=== PATIENT | male | born 2005 | race Caucasian/White ===

== ENCOUNTER 2025-04-01 18:33 | Emergency (ER) | payer BC, SELFPAY ==
[2025-04-01 18:38] VITALS: BP 137/73; PULSE 80; TEMP 37.1; O2SAT 98; BMI 22.4
--- NOTE | 2025-04-01 18:47 | XR_ITS ---
The [address] [address] Patient Name: PARVIN REYES MRN: [id number] date: 2005 Sex: M Assigned Patient Location: ED.MAIN Current Patient Location: ED.MAIN Accession/Order Number: [id number] Exam Date: 04/01/2025 19:38 Report Date: 04/01/2025 19:40 At the request of: EVONNE SANZ MD Procedure: XR foot LT min 3V LEFT FOOT - 3 views CLINICAL HISTORY: pain COMPARISON: None FINDINGS: Nondisplaced minimally comminuted fracture involving the first metatarsal. No significant distraction. Mild to moderate overlying soft tissue swelling. XR/XR foot LT min 3V IMPRESSION: Nondisplaced first metatarsal fracture. Impression dictated by: Everton Lang M.D. 04/01/2025 7:40 PM Dictation Location: [place] [address] Electronically authenticated by: [id number] Y Date: 04/01/2025 19:40
--- NOTE | 2025-04-01 18:48 | PC.NURSE ---
left foot swelling, pedal pulse present
--- NOTE | 2025-04-01 18:57 | ED_ITS ---
HPI HPI - General Adult General Chief complaint: Extremity Injury, Lower Stated complaint: LOWER EXTREMITY INJURY 04/01/25 Time Seen by Provider: 04/01/25 18:51 Source: patient Mode of arrival: walk-in History of Present Illness HPI narrative: Patient presents to the emergency department with pain and swelling to the dorsal aspect of the left foot after a floor anuradha dropped onto his foot while unloading it from a truck. Patient does have an overlying abrasion. Patient states the injury happened approximately 2 PM. He denies any other areas of injuries. Patient able to bear weight but painful to do so. He denies any numbness or tingling distal to the injury. Patient unsure when his last tetanus shot was Location: Reports left and lower extremity Radiation: Reports non-radiation Severity: moderate Quality: Reports aching and constant Related Data Previous Rx's ?Medication ?Instructions ?Recorded ibuprofen 800 mg tablet 800 mg PO Q8H PRN pain #30 t abs 04/01/25 Allergies Allergy/AdvReac Type Severity Reaction Status Date / Time No Known Drug Allergies Allergy Verified 04/01/25 18:42 Review of Systems ROS Status of ROS 10 or more systems reviewed and unremark able except as noted in history and below PFSH PFSH Social History Little interest or pleasure in doing things: not at all Feeling down, depressed, or hopeless: not at all Exam Constitutional Vital Signs, click to edit/add: Last Vital Signs Temp 98.7 F 04/01/25 18:38 Pulse 80 04/01/25 18:38 Resp 16 04/01/25 18:38 BP 137/73 04/01/25 18:38 Pulse Ox 98 04/01/25 18:38 O2 Del Method Room Air 04/01/25 18:38 Documenting provider has reviewed patient's vital signs: yes Common normals: no apparent distress, average body habitus, oriented x3, no limitations, healthy appearing, alert and well nourished Respiratory Common normals: normal respiratory effort Cardio Common normals: regular rate Extremity Left lower extremity: foot and digits Left foot and digits: inspection (Ecchymosis with overlying abrasion and soft tissue swelling to the dorsum) Other: Cap refill and neurovascularly intact distal to area of injury Course Vital Signs Vital signs: Vital Signs Temperature 98.7 F 04/01/25 18:38 Pulse Rate 80 04/01/25 18:38 Respiratory Rate 16 04/01/25 18:38 Blood Pressure 137/73 04/01/25 18:38 Pulse Oximetry 98 04/01/25 18:38 Oxygen Delivery Method Room Air 04/01/25 18:38 Temperature 98.7 F 04/01/25 18:38 Pulse Rate 80 04/01/25 18:38 Respiratory Rate 16 04/01/25 18:38 Blood Pressure 137/73 04/01/25 18:38 Pulse Oximetry 98 04/01/25 18:38 Oxygen Delivery Method Room Air 04/01/25 18:38 Medical Decision Making MDM Narrative Medical decision making narrative: Patient presented to the emergency department with pain and swelling to the dorsal aspect of the left foot at the base of the left hallux. Patient was neurovascularly intact distally injury and had no pain proximal to the foot or ankle. Patient has no signs of compartment syndrome with good capillary refill and sensation past area of injury. X-ray interpreted by myself shows a nondisplaced fracture of the first metatarsal. Patient placed in a postop shoe, already has his own set of crutches, advised to be nonweightbearing and will be referred to podiatry for outpatient follow-up Differential Diagnosis Differential Diagnosis: Foot fracture, foot sprain, foot crush injury Medical Records Medical records reviewed: Yes I reviewed the patient's medical records Imaging Data Abdominal x-ray: Attestation: I personally reviewed and interpreted this imaging study as follows: My impression: Left foot x-rays positive for fracture of first metatarsal Discharge Plan Discharge Chief Complaint: Extremity Injury, Lower Clinical Impression: Metatarsal fracture Qualifiers: Encounter type: initial encounter Metatarsal bone: first Fracture type: closed Fracture alignment: nondisplaced Patient Disposition: Home, Self-Care Time of Disposition Decision: 19:19 Condition: Good Mode of Transportation: Private Vehicle Prescriptions / Home Meds: New ibuprofen 800 mg tablet 800 mg PO Q8H PRN (Reason: pain) Qty: 30 0RF Print Language: Armenian Instructions: Crutch Instructions (ED), Foot Fracture in Adults (ED) Referrals: Lloyd Hensley [Primary Care Provider] - 1 week Osman Joyner DPM [Physician, Podiatry] - As soon as possible
[2025-04-01] MEDS: DIPHTH,PERTUSS(ACELL),TET VAC 0.5 ML SYRINGE IM (19:48)
[2025-04-01] MEDS: BACITRACIN 0.9 GM PACKET 1 PACKET TOPICAL (19:48)
== END 2025-04-01 19:59 | disposition home or self-care (01) ==
PROVIDERS: Emergency Provider Emergency Medicine; PCP Family Medicine
DX: S92.315A Nondisplaced fracture of first metatarsal bone, left foot, initial encounter for closed fracture (principal); W22.8XXA Striking against or struck by other objects, initial encounter; S90.812A Abrasion, left foot, initial encounter; Z23 Encounter for immunization
CPT/HCPCS: 73630; 90471; 99284